=== PATIENT | male | born 1990 | race Two or more races ===

== ENCOUNTER 2018-03-04 20:18 | Emergency (ER) | payer OTHER, SELFPAY ==
[2018-03-04] MEDS ORDERED: Morphine 10 MG/ML VIAL ONE ×2 (20:30→22:44)
[2018-03-04 20:39] LABS: #Basophils 0.1 thou/uL (0.0-0.2); #Eosinphils 0.4 thou/uL (0.0-0.7); #Lymphocytes 2.9 thou/uL (1.20-3.40); #Neutrophils 5.5 thou/uL (1.40-6.50); %Basophils 0.8 % (0.0-1.0); %Eosinophils 3.8 % (0.0-10.0); %Lymphocytes 29.5 % (21.0-51.0); %Monocytes 10.4 % (0.0-10.0); %Neutrophils 55.6 % (42.0-75.0); Hemoglobin 15.5 g/dL (14.0-18.0); Mean Corpuscular HGB CONC 34.1 g/dL (32.0-36.0); Mean Corpuscular Hemoglobin 30.4 pg (27.0-31.0); Mean Corpuscular Volume 89.1 fl (80.0-94.0); Platelet Count 178 thou/uL (130-400); RBC Distribution Width 12.1 % (11.5-14.5); Red Blood Cell (RBC) Count 5.09 mill/uL (4.70-6.10)
[2018-03-04 20:47] LABS: INR-International Normal Ratio 1.1; PTT 29.2 SEC (22.9-36.1)
[2018-03-04 20:52] LABS: Acetaminophen Less than 6.0 mcg/mL (10.0-30.0); Alcohol Less than 10 mg/dL (Less than 10); Salicylate Less than 8.0 mg/dL (15.0-30.0)
[2018-03-04 20:53] LABS: ALT (SGPT) 21 U/L (8-55); AST (SGOT) 26 U/L (5-34); Albumin 4.1 g/dL (3.5-5.0); Alkaline Phosphatase 62 U/L (40-150); Anion Gap 13 mmol/L (10-20); BUN (Urea Nitrogen) 20 mg/dL (8.9-20.6); Bilirubin, Total 0.8 mg/dL (0.2-1.2); Calc. Creatinine Clearance 0 mL/min (70-130); Calcium 9.2 mg/dL (7.8-10.44); Carbon Dioxide 23 mmol/L (22-29); Chloride 107 mmol/L (98-107); Estimated GFR-MDRD 50; Glucose 87 mg/dL (70-105); Potassium 3.6 mmol/L (3.5-5.1); Protein, Total 7.1 g/dL (6.0-8.3); Sodium 139 mmol/L (136-145)
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
== END 2018-03-04 23:34 | disposition home or self-care (01) ==
LOC: ERS 20:18
DX: S42.401A Unspecified fracture of lower end of right humerus, initial encounter for closed fracture (principal); F17.210 Nicotine dependence, cigarettes, uncomplicated; V49.9XXA Car occupant (driver) (passenger) injured in unspecified traffic accident, initial encounter
CPT/HCPCS: 29105; 70450; 71045; 72125; 72170; 80053; 80307; 85025; 85610; 85730; 86850; 86900; 86901; 93005; 96374; 96376; G0390; J2270

== ENCOUNTER 2018-03-06 12:32 | Emergency (ER) | payer SELFPAY | END 2018-03-06 13:25 | disposition home or self-care (01) | LOC: SCSER 12:32 | DX: Z46.89 Encounter for fitting and adjustment of other specified devices (principal); F17.210 Nicotine dependence, cigarettes, uncomplicated | CPT/HCPCS: 24500 ==

== ENCOUNTER 2018-03-09 08:55 | Observation (INO) | payer OTHER ==
[2018-03-09] MEDS ORDERED: CEFAZOLIN/Water 2 GM/20 ML SYRINGE ONE (10:32)
[2018-03-09] MEDS ORDERED: Midazolam HCl 2 mg/2 ml Vial ONE (11:07)
[2018-03-09] MEDS ORDERED: Fentanyl 100 MCG/2 ML VIAL ONE ×9 (11:19→16:17)
[2018-03-09] MEDS ORDERED: Ropivacaine 0.5% HCl/PF (150 MG/30 ML VIAL) ONE (14:31)
[2018-03-09] MEDS ORDERED: Ropivacaine 0.2% HCl/PF (40 MG/20 ML VIAL) ONE (14:31)
[2018-03-09] MEDS ORDERED: PROPOFOL 200 MG/20 ML VIAL ONE (15:09)
[2018-03-09] MEDS ORDERED: Lidocaine 1% PF 5 ML VIAL ONE (15:09)
[2018-03-09] MEDS ORDERED: Promethazine HCl 25 MG/ML VIAL SLOW IVP PRN (15:12)
[2018-03-09] MEDS ORDERED: Promethazine HCl 25 MG/ML VIAL IM PRN ×3 (15:12→17:22)
[2018-03-09] MEDS ORDERED: Ondansetron HCl/PF 4 MG/2 ML Vial IVP PRN ×2 (15:12→17:22)
[2018-03-09] MEDS ORDERED: Morphine Sulfate 2 MG/ML SYRINGE SLOW IVP PRN (15:12)
[2018-03-09] MEDS ORDERED: Bisacodyl 10 MG SUPP PR PRN (16:01)
[2018-03-09] MEDS ORDERED: Acetaminophen 325 MG TAB PO PRN (16:01)
[2018-03-09] MEDS ORDERED: Morphine 4 MG/ML Carpuject IVP PRN (16:01)
[2018-03-09] MEDS ORDERED: PHARMACY TO DOSE ANTIBIOTICS FS PRN (16:01)
[2018-03-09] MEDS ORDERED: Fentanyl 100 MCG/2 ML VIAL SLOW IVP PRN ×2 (16:01→17:23)
[2018-03-09] MEDS ORDERED: Ondansetron HCl/PF 4 MG/2 ML Vial IV PRN (16:01)
[2018-03-09] MEDS ORDERED: Tranexamic Acid 1,000 MG in Sodium Chloride 0.9% 250 ML 250 ML IVPB SCH (16:01)
[2018-03-09] MEDS ORDERED: traMADol HCl 50 MG TAB PO PRN ×4 (16:01→17:22)
[2018-03-09] MEDS ORDERED: HYDROcodone/Acetaminophen 10/325 mg Tablet PO PRN ×2 (16:01)
[2018-03-09] MEDS ORDERED: Milk Of Magnesia 30 ML UDCUP PO PRN (16:01)
--- NOTE | 2018-03-09 16:09 | RAD ---
RIGHT HUMERUS TWO VIEWS: 03/09/18 HISTORY: Postop. There has been open reduction and internal fixation of the comminuted spiral fracture of the humeral shaft with a plate and screws. Bony alignment appears satisfactory. IMPRESSION: Open reduction and internal fixation of a comminuted spiral fracture of the humeral shaft. POS: [facility]
[2018-03-09] MEDS ORDERED: Ropivacaine 0.2% 550 ML 550 ML NERVE BLCK SCH (17:22)
[2018-03-09] MEDS ORDERED: HYDROcodone/Acetaminophen 5/325 mg Tablet PO PRN (17:22)
[2018-03-09] MEDS ORDERED: Ketorolac Tromethamine 30 MG/ML VIAL IVP PRN (17:22)
[2018-03-09] MEDS ORDERED: Zolpidem Tartrate 5 MG TAB PO PRN (17:22)
[2018-03-09] MEDS ORDERED: Ketorolac Tromethamine 30 MG/ML VIAL IVP SCH (18:00)
[2018-03-09] MEDS ORDERED: CEFAZOLIN/Water 2 GM/20 ML SYRINGE SLOW IVP SCH (18:00)
--- NOTE | 2018-03-09 19:46 | RAD ---
TWO VIEWS OF THE RIGHT HUMERUS: 03/09/18 COMPARISON: 03/09/18 at 8:30 p.m. HISTORY: Right humerus fracture status post ORIF. FINDINGS/IMPRESSION: Multiple limited intraoperative fluoroscopic views of the right humerus were submitted for interpreta tion. The patient is status post ORIF of the fracture of the humerus with a plate and screws. No amy hardware lucency is identified. POS: [facility]
[2018-03-09] MEDS ORDERED: hydrALAZINE 20 MG/ML VIAL SLOW IVP PRN (20:27)
[2018-03-09 20:30] VITALS: BMI 34.4
[2018-03-09] MEDS: CEFAZOLIN/Water 2 GM/20 ML SYRINGE SLOW IVP SCH (20:57)
[2018-03-10 04:10] LABS: #Eosinphils 0.1 thou/uL (0.0-0.7); #Lymphocytes 1.8 thou/uL (1.20-3.40); #Monocytes 1.1 thou/uL (0.11-0.59); #Neutrophils 8.6 thou/uL (1.40-6.50); %Basophils 0.3 % (0.0-1.0); %Eosinophils 1.2 % (0.0-10.0); %Lymphocytes 15.3 % (21.0-51.0); %Monocytes 9.8 % (0.0-10.0); %Neutrophils 73.4 % (42.0-75.0); Hemoglobin 11.3 g/dL (14.0-18.0); Mean Corpuscular HGB CONC 33.6 g/dL (32.0-36.0); Mean Corpuscular Hemoglobin 29.9 pg (27.0-31.0); Mean Corpuscular Volume 89.1 fl (80.0-94.0); Mean Platelet Volume 6.3 fL (7.4-10.4); Platelet Count 193 thou/uL (130-400); RBC Distribution Width 12.1 % (11.5-14.5); White Blood Cell (WBC) Count 11.7 thou/uL (4.8-10.8)
[2018-03-10] MEDS: CEFAZOLIN/Water 2 GM/20 ML SYRINGE SLOW IVP SCH (04:37)
[2018-03-10] MEDS: HYDROcodone/Acetaminophen 5/325 mg Tablet PO PRN ×2 (06:19→10:28)
[2018-03-10 06:33] VITALS: BP 140/77
[2018-03-10] MEDS ORDERED: Bisacodyl 5 MG TAB PO SCH (07:00)
[2018-03-10 08:53] VITALS: TEMP 99.3
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
== END 2018-03-10 11:10 | disposition home or self-care (01) ==
LOC: SDC 08:55 → ONC 18:25
PROVIDERS: ADMIT Orthopaedic Surgery; ATTEND Orthopaedic Surgery
PROC: 0PSF04Z Reposition Right Humeral Shaft with Internal Fixation Device, Open Approach (ICD-10-PCS; principal; 2018-03-09)
DX: S42.351A Displaced comminuted fracture of shaft of humerus, right arm, initial encounter for closed fracture (principal); Z79.899 Other long term (current) drug therapy; V89.2XXA Person injured in unspecified motor-vehicle accident, traffic, initial encounter
CPT/HCPCS: 36415; 76001; 85025; 96374; 96375; 96376; A4216; A4306; C1713; G0378; J0360; J1885; J2001; J2250; J2704; J2795; J3010